=== PATIENT | male | born 1955 | race American Indian/Alaskan Native ===

== ENCOUNTER 2017-08-24 14:56 | Emergency (ER) | payer BC, OTHER ==
[2017-08-24 15:07] VITALS: RESP 18; O2SAT 99
--- NOTE | 2017-08-24 15:34 | ED PDOC ---
Arrival/HPI - General Chief Complaint: Shortness Of Breath Time Seen by Provider: 08/24/17 15:14 Historian: Patient - History of Present Illness Narrative History of Present Illness (Text): 08/24/17 15:31 This is a 62yo male with no PMHx who was referred to ED by Dr. Morrison for evaluation of SOB since last night. Patient report KAHN with palpitation since last night. States symptoms started after shovelling snow. He saw Dr. Morrison today and was referred to the ED. He denies chest pain, Othopnea, cough, recent travel, recent surgery, calf pain, LE edema, dizziness, nausea, diaphoresis, any other complaint. Past Medical History - Provider Review Nursing Documentation Reviewed: Yes - Psychiatric Hx Substance Use: No Family/Social History - Physician Review Nursing Documentation Reviewed: Yes Family/Social History: Unknown Family HX Smoking Status: Former Smoker Hx Alcohol Use: No Hx Substance Use: No Allergies/Home Meds Allergies/Adverse Reactions: Allergies No Known Allergies Allergy (Verified 08/24/17 15:05) Review of Systems - Physician Review All systems were reviewed & negative as marked: Yes - Review of Systems Constitutional: Normal Eyes: Normal ENT: Normal Respiratory: SOB. absent: Cough Cardiovascular: Palpitations, KAHN. absent: Chest Pain, Edema, Calf Pain, Orthopnea Gastrointestinal: Normal Genitourinary Male: Normal Musculoskeletal: Normal Skin: Normal Neurological: Normal Endocrine: Normal Hemo/Lymphatic: Normal Psychiatric: Normal Physical Exam Vital Signs Reviewed: Yes Vital Signs Temp Pulse Resp BP Pulse Ox 08/24/17 18:28 98.2 F 72 18 123/51 L 99 08/24/17 17:21 98.2 F 74 18 124/50 L 99 08/24/17 15:30 18 08/24/17 15:01 97.7 F 81 18 105/82 99 Temperature: Afebrile Blood Pressure: Normal Pulse: Regular Respiratory Rate: Normal Appearance: Positive for: Well-Appearing, Non-Toxic, Comfortable Pain Distress: None Mental Status: Positive for: Alert and Oriented X 3 - Systems Exam Head: Present: Atraumatic, Normocephalic Pupils: Present: PERRL Extroacular Muscles: Present: EOMI Conjunctiva: Present: Normal Mouth: Present: Moist Mucous Membranes Neck: Present: Normal Range of Motion Respiratory/Chest: Present: Clear to Auscultation, Good Air Exchange. No: Respiratory Distress, Accessory Muscle Use, Wheezes, Decreased Breath Sounds, Rales, Retracting, Rhonchi Cardiovascular: Present: Regular Rate and Rhythm, Normal S1, S2. No: Murmurs Abdomen: Present: Normal Bowel Sounds. No: Tenderness, Distention, Peritoneal Signs Back: Present: Normal Inspection Upper Extremity: Present: Normal Inspection. No: Cyanosis, Edema Lower Extremity: Present: Normal Inspection. No: Edema Neurological: Present: GCS=15, CN II-XII Intact, Speech Normal Skin: Present: Warm, Dry, Normal Color. No: Rashes Psychiatric: Present: Alert, Oriented x 3, Normal Insight, Normal Concentration Medical Decision Making ED Course and Treatment: 08/24/17 18:31 62yo male with no PMhx referred to ED for evaluation of SOB Pt was hemodyanmcially stable in ED EKG sinus rhythm with PAC @75bpm. NSTEMI Lab was unremarkable. PT was hypercapneic in ABG, but not hypoxic on RA. Elevated d dimer was noted and chest CTA wa ordered to r/o PE CXR NAD Chest CTA IMPRESSION: No CT evidence to suggest pulmonary embolus. No acute infiltrate, pleural or pericardial effusion. No significant lymphadenopathy. A tiny nodule versus vascular ectasis seen the left apex for which follow-up chest is advised in 12 months to demonstrate stability of this finding. 08/24/17 18:35 All result was AHMET Morrison. Pt is not in any distress. He denied chest pain in ED. He is stable for discharge. Dr. Morrison recommends DC with prescription of Atenolol 25mg and Pro air. Wants pt to f/u with her office next week. she reports pt's history of tobacco smoking for >15yrs. All result and plan was DW the pt he expressed understanding. He was advised to return to ED for any new or worsening symptoms - Lab Interpretations Lab Results: 08/24/17 15:30 08/24/17 15:30 Lab Results 08/24/17 16:06: Urine Opiates Screen Negative, Urine Methadone Screen Negative, Ur Barbiturates Screen Negative, Ur Phencyclidine Scrn Negative, Ur Amphetamines Screen Negative, U Benzodiazepines Scrn Negative, U Oth Cocaine Metabols Negative, U Cannabinoids Screen Negative 08/24/17 16:06: Urine Color Yellow, Urine Appearance Clear, Urine pH 6.0, Ur Specific [place] >= 1.030, Urine Protein Negative, Urine Glucose (UA) Negative, Urine Ketones Negative, Urine Blood Negative, Urine Nitrate Negative, Urine Bilirubin Negative, Urine Urobilinogen 0.2, Ur Leukocyte Esterase Negative 08/24/17 15:30: Sodium 145, Chloride 106, Potassium 4.3, Carbon Dioxide 30, Anion Gap 12, BUN 19, Creatinine 1.0, Est GFR ( Amer) > 60, Est GFR (Non- Af Amer) > 60, Random Glucose 91, Calcium 10.1, Total Bilirubin 0.8, AST 79 H, ALT 66 H, Alkaline Phosphatase 43, Lactate Dehydrogenase 468, Total Creatine Kinase 107, Troponin I < 0.01, NT-Pro-B Natriuret Pep 215, Total Protein 8.2, Albumin 4.0, Globulin 4.1, Albumin/Globulin Ratio 1.0 L 08/24/17 15:30: pO2 32, VBG pH 7.31 L, VBG pCO2 63.0 H, VBG HCO3 31.7 H, VBG Total CO2 33.6 H, VBG O2 Sat (Calc) 56.0, VBG Base Excess 3.6 H, VBG Potassium 4.1, Sodium 143.0, Chloride 108.0 H, Glucose 92, Lactate 1.5, FiO2 21.0, Venous Blood Potassium 4.1 08/24/17 15:30: WBC 5.0, RBC 4.24, Hgb 13.8 L, Hct 40.7 L, MCV 96.0, MCH 32.5, MCHC 33.9, RDW 13.7, Plt Count 187, MPV 9.5, Gran % 42.4 L, Lymph % (Auto) 49.9 H, Carson % (Auto) 6.3 H, Eos % (Auto) 1.2 L, Baso % (Auto) 0.2, Gran # 2.10, Lymph # (Auto) 2.5, Carson # (Auto) 0.3, Eos # (Auto) 0.1, Baso # (Auto) 0.01 08/24/17 15:30: PT 12.4, INR 1.09 H, APTT 33.5, D-Dimer, Quantitative 692 H - RAD Interpretation Radiology Orders: 08/24/17 15:16 CHEST PORTABLE [RAD] Stat 08/24/17 16:15 ANGIO CHEST PE PROTOCOL [CT] Stat - Medication Orders Current Medication Orders: Discontinued Medications Atenolol (Tenormin) 25 mg PO DAILY STA Stop: 08/24/17 18:10 Disposition/Present on Arrival - Present on Arrival Any Indicators Present on Arrival: No History of DVT/PE: No History of Uncontrolled Diabetes: No Urinary Catheter: No History of Decub. Ulcer: No History Surgical Site Infection Following: None - Disposition Have Diagnosis and Disposition been Completed?: Yes Diagnosis: COPD (chronic obstructive pulmonary disease) Disposition: HOME/ ROUTINE Disposition Time: 18:10 Patient Plan: Discharge Condition: STABLE Discharge Instructions (ExitCare): Chronic Obstructive Pulmonary Disease (COPD) , Including Emphysema Additional Instructions: Follow up with your Doctor next week Return to ED for any new or worsening symptom Prescriptions: Albuterol Sulfate [Proair Hfa] 200 puff IH Q4 #1 inh Atenolol [Tenormin] 25 mg PO DAILY #15 tablet Referrals: PCP,NORMA [Primary Care Provider] - Follow up with primary Ariella Morrison MD [Staff Provider] - Follow up with primary Forms: [employer] ([employer] [place])
[2017-08-24 15:41] LABS: BASO # 0.01 K/mm3 (0.0-2.0); BASO % 0.2 % (0.0-3.0); EOS # 0.1 (0.0-0.7); EOS % 1.2 % (1.5-5.0); GRAN # 2.1 (1.4-6.5); GRAN % 42.4 % (50.0-68.0); HEMOGLOBIN 13.8 g/dL (14.0-18.0); LYMPH # 2.5 (1.2-3.4); LYMPH % 49.9 % (22.0-35.0); MEAN CORPUSCULAR HEMOGLOBIN 32.5 pg (25.0-35.0); MEAN CORPUSCULAR HGB CONC 33.9 g/dl (31.0-37.0); MEAN PLATELET VOLUME 9.5 fl (7.0-11.0); MONO # 0.3 (0.1-0.6); MONO % 6.3 % (1.0-6.0); RBC 4.24 10^6/uL (3.5-6.1); RED CELL DISTRIBUTION WIDTH 13.7 % (11.5-14.5)
[2017-08-24 15:48] LABS: VENOUS BLOOD GAS BASE EXCESS 3.6 mmol/L (0.0-2.0); VENOUS BLOOD GAS PO2 32 mm/Hg (30-55); VENOUS BLOOD PH 7.31 (7.32-7.43)
[2017-08-24 15:52] LABS: ALT/SGPT 66 U/L (7-56); AST/SGOT 79 U/L (17-59); BLOOD UREA NITROGEN 19 mg/dL (7-21); CALCIUM 10.1 mg/dL (8.4-10.5); GFR AFRICAN-AMERICAN > 60; GFR NON-AFRICAN AMERICAN > 60
[2017-08-24 15:53] LABS: INR 1.09 (0.93-1.08); PARTIAL THROMBOPLASTIN TIME 33.5 Seconds (25.1-36.5); PROTHROMBIN TIME 12.4 SECONDS (9.4-12.5)
[2017-08-24 16:03] LABS: B-TYPE NATRIURETIC PEPTIDE 215 pg/mL (0-450); TROPONIN I < 0.01 ng/mL
[2017-08-24 16:20] LABS: URINE BILIRUBIN NEGATIVE (NEGATIVE); URINE BLOOD NEGATIVE (NEGATIVE); URINE GLUCOSE (UA) NEGATIVE (NEGATIVE); URINE LEUKOCYTE ESTERASE NEGATIVE Leu/uL (NEGATIVE); URINE PROTEIN NEGATIVE mg/dL (<30 mg/dL); URINE UROBILINOGEN 0.2 E.U./dL (<1 E.U./dL)
[2017-08-24 16:23] LABS: URINE APPEARANCE CLEAR (CLEAR); URINE COLOR YELLOW (YELLOW)
--- NOTE | 2017-08-24 16:35 | RAD ---
HISTORY: SOB COMPARISON: No prior. FINDINGS: LUNGS: No active pulmonary disease. PLEURA: No significant pleural effusion identified, no pneumothorax apparent. CARDIOVASCULAR: Normal. OSSEOUS STRUCTURES: No significant abnormalities. VISUALIZED UPPER ABDOMEN: Normal. OTHER FINDINGS: None. IMPRESSION: No active disease.
[2017-08-24 16:39] LABS: BARBITURATES, UR NEGATIVE (NEGATIVE); BENZODIAZEPINES, UR NEGATIVE (NEGATIVE); OPIATES, UR NEGATIVE (NEGATIVE); PHENCYCLIDINE, UR NEGATIVE (NEGATIVE)
[2017-08-24] MEDS ORDERED: Iohexol 350 MG/100 ML VIAL ONE (16:47)
[2017-08-24 17:22] VITALS: TEMP 98.2
--- NOTE | 2017-08-24 17:55 | CT ---
PROCEDURE: CT Chest with contrast (Pulmonary Angiogram) HISTORY: SOB COMPARISON: None available. TECHNIQUE: Axial computed tomography images were obtained of the chest in the pulmonary arterial phase of enhancement. Coronal and sagittal reformatted images were created and reviewed. Intravenous contrast dose: Omnipaque 350, 100 cc Radiation dose: Total exam DLP = 447.13 mGy-cm. This CT exam was performed using one or more of the following dose reduction techniques: Automated exposure control, adjustment of the mA and/or kV according to patient size, and/or use of iterative reconstruction technique. FINDINGS: PULMONARY ARTERIES: Unremarkable. No pulmonary embolism. AORTA: No acute findings. No thoracic aortic aneurysm. LUNGS: Unremarkable. NoCentrilobular emphysema identified at the bilateral apices predominantly on a [id number]-xs-[id number] basis. No alveolar infiltrate or discrete airway lesion throughout. A 2.5 mm questionable nodule seen at the left apex versus ectatic vessel in image 18 series 4. PLEURAL SPACES: Unremarkable. No effusion or pneuomothorax. HEART: Unremarkable. No cardiomegaly. No significant pericardial effusion. LYMPH NODES: No lymphadenopathy. BONES, CHEST WALL: Unremarkable. No fracture or destructive lesion OTHER FINDINGS: Cholelithiasis in the upper abdomen sections. IMPRESSION: No CT evidence to suggest pulmonary embolus. No acute infiltrate, pleural or pericardial effusion. No significant lymphadenopathy. A tiny nodule versus vascular ectasis seen the left apex for which follow-up chest is advised in 12 months to demonstrate stability of this finding.
[2017-08-24 18:29] VITALS: BP 123/51; PULSE 72
--- NOTE | 2017-08-25 23:37 | CARD ---
APPROVED REPORT EKG Measurement Heart [id number] <Conclusion> Sinus rhythm with premature atrial complexes with aberrant conduction Left anterior fascicular block Moderate voltage criteria for LVH, may be normal variant Nonspecific ST abnormality Abnormal ECG
== END 2017-08-24 18:35 | disposition home or self-care (01) ==
LOC: ED 14:56
DX: J44.9 Chronic obstructive pulmonary disease, unspecified (principal); Z87.891 Personal history of nicotine dependence
CPT/HCPCS: 71045; 71275; 80053; 81003; 82550; 82803; 83615; 83880; 84484; 85025; 85378; 85610; 85730; 87040; 93005; 99284; G0480; Q9967